=== PATIENT | male | born 1940 | race Caucasian/White ===

== ENCOUNTER → 2016-12-11 | Outpatient (CLI) | payer OTHER | LOC: BMCIMAGING 15:27 | PROVIDERS: ATTEND Family Medicine | DX: S22.42XA Multiple fractures of ribs, left side, initial encounter for closed fracture (principal) | CPT/HCPCS: 71101-PO ==

== ENCOUNTER 2016-12-20 15:00 | Emergency (ER) | payer OTHER ==
--- NOTE | 2016-12-20 15:44 | EDPHY ---
H & P Time Seen by Provider: 12/20/16 15:21 HPI/ROS: CHIEF COMPLAINT: Headache HISTORY OF PRESENT ILLNESS: The patient is a 76-year-old male who presents emergency department with an ongoing headache. The patient fell skiing 2 weeks ago. He was helmeted. He did not lose consciousness. He initially felt okay after the fall. A few days later he developed left-sided rib pain. He was seen in urgent care diagnosed with a left rib fracture. Over the past week he has had a slight headache that have persisted. He also feels slightly forgetful and has increased sleepiness. No focal neurologic deficits. No neck pain. REVIEW OF SYSTEMS: My complete review of systems is negative except as mentioned in the HPI. Past Medical/Surgical History: Includes Past surgical history: Aortic valve replacement, pacemaker placement, laminectomy, knee surgery, cholecystectomy Social history: The patient denies drugs or alcohol. He does not smoke. Smoking Status: Never smoked Physical Exam: GENERAL: Well-appearing, in no acute distress, alert. HEENT: Eyes normal to inspection, PERLLA, normal pharynx, no signs of dehydration. No visible head trauma. NECK: No thyromegaly, no lymphadenopathy, supple. No cspine TTP. Full range of motion. RESPIRATORY: Clear to auscultation bilaterally, no rales, rhonchi or wheezing. Chest wall: Left chest wall TTP. CVS: Regular rate and rhythm, no rubs, murmurs, or gallops. ABDOMEN: Soft, nontender, nondistended, no organomegaly. BACK: Normal to inspection, no CVA tenderness. No spinal TTP. SKIN: Normal color, no rash, warm, dry. No pallor. EXTREMITIES: No pedal edema, no calf tenderness, no Homans sign or cords, no joint swelling. NEURO/PSYCH: Higher functions: Alert and Oriented x3. Normal speech and cognition. Normal mood and affect. Cranial nerves: Normal as tested. Cerebellar: Normal as tested. Good finger to nose, good [id number], normal gait. Peripheral exam: Normal motor exam. Normal sensation. Constitutional: Initial Vital Signs Temperature (C) 36.8 C 12/20/16 15:05 Heart Rate 64 12/20/16 15:05 Respiratory Rate 18 12/20/16 15:05 Blood Pressure 143/78 H 12/20/16 15:05 O2 Sat (%) 97 12/20/16 15:05 O2 Delivery Mode Room Air Allergies/Adverse Reactions: No Known Allergies Allergy (Verified 12/20/16 15:14) Home Medications: Medication Instructions Recorded AZOPT 1% (RX) 01/10/16 Aspirin 81mg (OTC) 01/10/16 Atorvastatin Calcium 01/10/16 Brimonidine Tartrate 01/10/16 Combigan (RX) 01/10/16 Escitalopram Oxalate 01/10/16 Flecainide Acetate 01/10/16 Gabapentin 01/10/16 Glucosamine 01/10/16 Latanoprost 01/10/16 Multivitamin 01/10/16 Pantoprazole Sodium 01/10/16 Tamsulosin HCl 01/10/16 Timolol 01/10/16 Tylenol 01/10/16 Medical Decision Making ED Course/Re-evaluation: In the emergency department I discussed possible etiologies with the patient. I answered all his questions. He consented to head CT. Laboratory studies and head CT were ordered. I reviewed the patient's laboratory studies. Chemistry and CBC were unremarkable. Coags normal. Head CT: Please refer the dictated report by Dr. Cruz Zhao. No acute disease noted. I discussed the results with the patient. I answered all his questions. He was given warnings prior to leaving. He will follow up with Dr. Moeller. Differential Diagnosis: My differential includes but is not limited to subarachnoid hemorrhage, subdural hematoma, epidural hematoma, skull fracture, concussion, spinal injury , electrolyte abnormality, sugar abnormality - Data Points Laboratory Results: Laboratory Results 12/20/16 15:25 12/20/16 15:25 12/20/16 12/20/16 12/20/16 15:25 15:25 15:25 WBC 4.45 10^3/uL 10^3/uL (3.80-9.50) RBC 4.87 10^6/uL 10^6/uL (4.40-6.38) Hgb 16.1 g/dL g/dL (13.7-17.5) Hct 43.9 % % (40.0-51.0) MCV 90.1 fL fL (81.5-99.8) MCH 33.1 pg pg (27.9-34.1) MCHC 36.7 g/dL g/dL (32.4-36.7) RDW 12.3 % % (11.5-15.2) Plt Count 179 10^3/uL 10^3/uL (150-400) MPV 9.6 fL fL (8.7-11.7) Neut % (Auto) 50.6 % % (39.3-74.2) Lymph % (Auto) 35.3 % % (15.0-45.0) Norton % (Auto) 11.2 % % (4.5-13.0) Eos % (Auto) 1.8 % % (0.6-7.6) Baso % (Auto) 1.1 % % (0.3-1.7) Nucleat RBC Rel Count 0.0 % % (0.0-0.2) Absolute Neuts (auto) 2.25 10^3/uL 10^3/uL (1.70-6.50) Absolute Lymphs (auto) 1.57 10^3/uL 10^3/uL (1.00-3.00) Absolute Monos (auto) 0.50 10^3/uL 10^3/uL (0.30-0.80) Absolute Eos (auto) 0.08 10^3/uL 10^3/uL (0.03-0.40) Absolute Basos (auto) 0.05 10^3/uL 10^3/uL (0.02-0.10) Absolute Nucleated RBC 0.00 10^3/uL 10^3/uL (0-0.01) Immature Gran % 0.0 % % (0.0-1.1) Immature Gran # 0.00 10^3/uL 10^3/uL (0.00-0.10) PT 13.4 SEC SEC (12.0-15.0) INR 1.03 (0.83-1.16) APTT 29.8 SEC SEC (23.0-38.0) Sodium 142 mEq/L mEq/L (134-144) Potassium 3.9 mEq/L mEq/L (3.5-5.2) Chloride 109 mEq/L mEq/L (97-110) Carbon Dioxide 24 mEq/l mEq/l (22-31) Anion Gap 9 mEq/L mEq/L (8-16) BUN 23 mg/dL mg/dL (7-23) Creatinine 1.0 mg/dL mg/dL (0.7-1.3) Estimated GFR > 60 Glucose 84 mg/dL mg/dL (70-100) Calcium 9.5 mg/dL mg/dL (8.5-10.4) Departure - Departure Disposition: Home, Routine, Self-Care Clinical Impression: Head injury Qualifiers: Encounter type: initial encounter Qualified Code(s): S09.90XA - Unspecified injury of head, initial encounter Condition: Good Instructions: Head Injury (ED) Additional Instructions: Return with increasing headache, weakness, numbness, or any other concerns. Your laboratory studies and Ct scan were unremarkable. Referrals: [facility] [Other] - 1-2 days without fail Lexii Moeller MD [Medical Doctor] - 5-7 days, call for appt.
[2016-12-20 15:59] LABS: ADD DIFF? NO; ADD MORPH? NO; ADD SCAN? NO; ATYPICAL LYMPHOCYTE FLAG 10 (0-99); FRAGMENT RBC FLAG 0 (0-99); HEMATOCRIT 43.9 % (40.0-51.0); HEMOGLOBIN 16.1 g/dL (13.7-17.5); LEFT SHIFT FLG 0 (0-99); LIPEMIA HEMOLYSIS FLAG 90 (0-99); MEAN CELL HEMOGLOBIN 33.1 pg (27.9-34.1); MEAN CELL HEMOGLOBIN CONCENTR. 36.7 g/dL (32.4-36.7); MEAN CELL VOLUME 90.1 fL (81.5-99.8); MEAN PLATELET VOLUME 9.6 fL (8.7-11.7); PLATELET CLUMPS FLAG 0 (0-99); PLATELET COUNT 179 10^3/uL (150-400); RED BLOOD CELL COUNT 4.87 10^6/uL (4.40-6.38); RED CELL DISTRIBUTION WIDTH 12.3 % (11.5-15.2)
[2016-12-20 16:10] LABS: INR 1.03 (0.83-1.16); PROTIME(PATIENT) 13.4 SEC (12.0-15.0)
[2016-12-20 16:11] LABS: APTT 29.8 SEC (23.0-38.0)
[2016-12-20 16:15] LABS: ANION GAP 9 mEq/L (8-16); CALCIUM 9.5 mg/dL (8.5-10.4); CARBON DIOXIDE 24 mEq/l (22-31); CHLORIDE 109 mEq/L (97-110); GLOMERULAR FILTRATION RATE > 60; GLUCOSE 84 mg/dL (70-100); POTASSIUM 3.9 mEq/L (3.5-5.2); SODIUM 142 mEq/L (134-144)
[2016-12-20 16:55] VITALS: BP 133/72; PULSE 53; RESP 16; TEMP 98.4; O2SAT 95
== END 2016-12-20 16:53 | disposition home or self-care (01) ==
DX: S09.90XA Unspecified injury of head, initial encounter (principal); Z79.82 Long term (current) use of aspirin; Z95.0 Presence of cardiac pacemaker; V00.321A Fall from snow-skis, initial encounter; Y99.8 Other external cause status; Y93.23 Activity, snow (alpine) (downhill) skiing, snowboarding, sledding, tobogganing and snow tubing